=== PATIENT | male | born 1965 | race Caucasian/White ===

== ENCOUNTER 2019-11-11 11:00 | Observation (INO) ==
[~2019-11-11 11:00] MED LIST: ACETAMINOPHEN 500 MG TABLET PO PRN; MAG HYDROX/ALUMINUM HYD/SIMETH 30 ML UDC PO PRN; MAGNESIUM HYDROXIDE 30 ML UDC PO PRN; ONDANSETRON HCL/PF 2 MG/ML VIAL IV PRN; RINGER'S SOLUTION,LACTATED 1,000 ML IV PRN; ZOLPIDEM TARTRATE 5 MG TABLET PO PRN; ceFAZolin SODIUM 1 GM VIAL IV PRN; diphenhydrAMINE HCL 50 MG/ML VIAL IV PRN
[2019-11-11] MEDS: RINGER'S SOLUTION,LACTATED 1,000 ML IV PRN ×2 (11:35→14:32)
--- NOTE | 2019-11-11 12:24 | ANES ---
Anesthesia Pre Procedure Eval Vitals/Labs: Last Vital Signs Temp 36.8 C 11/11/19 11:17 Pulse 70 11/11/19 11:17 Resp 18 11/11/19 11:17 BP 141/94 H 11/11/19 11:17 Pulse Ox 97 11/11/19 11:17 HOME MEDICATIONS Aspirin [Aspirin Chewable] 81 mg PO DAILY 01/07/18 [Last Taken Unknown] Glucosamine HCl 2 tab PO DAILY 01/07/18 [Last Taken Unknown] Loratadine 10 mg PO DAILY 01/07/18 [Last Taken Unknown] Multivitamin [Multivitamins] 1 ea PO DAILY 01/07/18 [Last Taken Unknown] metFORMIN HCL [Metformin HCl] 500 mg PO BID 01/07/18 [Last Taken Unknown] Atorvastatin Calcium 10 mg PO HS 10/19/19 [Last Taken Unknown] Echinacea 1,000 mg PO DAILY 11/11/19 [Last Taken Unknown] Tamsulosin HCl [Flomax] 0.4 mg PO DAILY 11/11/19 [Last Taken Unknown] Tiotropium [place] [Spiriva] 2 cap INHALATION DAILY 11/11/19 [Last Taken Unknown] Allergies/Adverse Reactions: Allergies Allergy/AdvReac Type Severity Reaction Status Date / Time shellfish derived AdvReac makes very Verified 11/11/19 11:23 sick with vomitting - Planned Procedure Planned Procedure: Closed reduction percutaneous pinning left 5th met Medication List Reviewed:: Yes Allergies Verified: Yes Medical History (Last Reviewed 11/11/19 @ 12:23 by Alberto Ceja CRNA) Sleep apnea with use of continuous positive airway pressure (CPAP) COPD (chronic obstructive pulmonary disease) Onset Date: Unknown Foot fracture, left Onset Date: 10/19/19 fifth metatarsal History of smoking Onset Date: Unknown Pre-diabetes Onset Date: Unknown Hypercholesteremia Onset Date: Unknown Hypertension Onset Date: Unknown Surgical History (Last Reviewed 11/11/19 @ 12:23 by Alberto Ceja CRNA) History of bilateral inguinal hernia repair Onset Date: Unknown History of rectal surgery Onset Date: Unknown removal mass History of rotator cuff surgery Onset Date: Unknown Left Shoulder S/P LASIK surgery Onset Date: Unknown Family History (Last Reviewed 11/11/19 @ 12:23 by Alberto Ceja CRNA) Mother Diabetes Father Diabetes Heart disease Cancer - Family Anesthesia History Family History:: no untoward family reactions to anesthesia - Airway/Neck/Teeth Within Normal Limits:: Yes Teeth Condition: missing Neck Exam: limited range of motion Mallampatti Score: 3 Thyromental (T-M) distance: > 6 cm Mandibulo Hyoid distance: > 3 cm - Respiratory Respiratory History: COPD, CPAP/BiPAP home use Respiratory Physical: lungs clear Smoking Status: Former smoker Sleep Apnea currently treated: Yes Sleep Apnea by current assessment: Yes - Cardiovascular Cardiac History: hypertension Tolerate Activity: Fair Heart Sounds: S1 & S2, Regular - Gastrointestinal NPO since: MN - Anesthesia Assessment and Plan ASA Class: PS, III Anesthesia Type Plan: MAC Planned difficult intubation/equipment available: No
[2019-11-11] MEDS ORDERED: ceFAZolin SODIUM 1 GM VIAL ONE (12:25)
[2019-11-11] MEDS ORDERED: BUPIVACAINE HCL 50 ML VIAL IJ ONE ×3 (12:25→13:03)
[2019-11-11] MEDS ORDERED: LIDOCAINE HCL 20 ML VIAL ONE (12:26)
[2019-11-11] MEDS ORDERED: PROPOFOL VIAL IV ONE (12:27)
[2019-11-11] MEDS ORDERED: MIDAZOLAM HCL/PF 5 MG/ML VIAL ONE (12:27)
--- NOTE | 2019-11-11 13:27 | OR ---
Operative Report - Dictated Report Narrative: DATE OF PROCEDURE: 11/11/2019 PHYSICIAN: Jassi Valdes MD PHARMACEUTICAL SPECIALTY REPRESENTATIVE: Stefan Ortiz PA-C PREOPERATIVE DIAGNOSIS: Closed left proximal fifth metatarsal fracture. POSTOPERATIVE DIAGNOSIS: Closed left proximal fifth metatarsal fracture. OPERATIONS AND PROCEDURES: 1. Closed reduction and percutaneous fixation left proximal fifth metatarsal fracture. 2. Intraoperative interpretation of x-rays. ANESTHESIA: General plus local. COMPLICATIONS: None. DRAINS: None. SPECIMENS: None. RETAINED IMPLANTS: Murray and Nephew 5.5 mm partially threaded cannulated cancellus screw 56 mm. INDICATIONS FOR PROCEDURE: Mr. Pressley is a 54-year-old gentleman who injured the left foot after twisting injury. He was seen in clinic and discussed options for treatment and wished to proceed with surgical treatment. The risks, benefits, and alternatives were discussed. The risk of bleeding, infection, nerve/tendon/blood vessel injury, malunion, nonunion, painful implants, prominent implants, failure of the procedure, need for additional procedures were discussed, and he wished to proceed. Consent was obtained in the clinic. DESCRIPTION OF PROCEDURE: After marking the correct extremity in the preoperative holding area, the patient was taken to the operating room. Timeout was performed. IV antibiotics consisting of Ancef were administered prior to procedure. A well-padded tourniquet was applied to the left calf. A beanbag was utilized in order to bump the left buttock and the left leg was then prepped and draped in a standard sterile fashion. After exsanguinating the extremity and inflating the tourniquet to 250 mmHg, local anesthetic was placed at the base of the fifth metatarsal. Using C arm for anatomic positioning a jordan incision was made to place a guidewire and a superior medial position at the base of the fifth metatarsal. This was placed d own the shaft in order to obtain the longest screw possible. Screw was measured out to 56 mm. Drill was utilized in order to open the proximal cortex and a countersink was utilized in order to allow the head to fit more flush. The screw was then placed and secured compressing across the fracture. The fracture was approximately 3 weeks old and thus there was some intervening soft tissues but we improved the overall reduction. Once was felt that we adequately stabilized the fracture, final images were obtained with mini C arm. 0.5% Marcaine without epinephrine was infused around the incision and around the lateral aspect of the foot. Tourniquet was deflated and hemostasis obtained. The wound was then closed with interrupted 3-0 nylon after obtaining final images. Xeroform, 4 x 4, soft roll Coban and a cam boot was applied and the patient was awoken and transferred to the postanesthesia care unit stable condition. All sponge, needle, and instrument counts were correct prior to closing the wounds.
--- NOTE | 2019-11-11 13:44 | ANES ---
Post Anesthesia Discharge - Transfer of Care Transfer of Care handoff given to nurse: Yes - Discharge to ASU Discharge to ASU-no complications/pt stable: Yes
--- NOTE | 2019-11-11 13:44 | ANES ---
Post Anesthesia Assessment - Vital Signs Vitals: Last Vital Signs Temp 36.7 C 11/11/19 13:30 Pulse 91 11/11/19 13:30 Resp 16 11/11/19 13:30 BP 122/89 11/11/19 13:30 Pulse Ox 92 L 11/11/19 13:30 Airway Patency: Normal - Mental Status Level Of Consciousness: Awake - Pain Level Pain Score: 0 - N/V Assessment Nausea/Vomiting Presence: None Dehydration:: No
[2019-11-11] MEDS: oxyCODONE HCL/ACETAMINOPHEN 1 TAB TABLET PO PRN ×2 (14:05→19:06)
[2019-11-11] MEDS ORDERED: HYDROmorphone HCL 2 MG/ML VIAL IV ONE (14:17)
[2019-11-11 14:58] LABS: CK Total * 108 U/L (0-259); CKMB 0.9 ng/mL (0.0-9.0); Troponin I Less than 0.017 ng/mL (0.00-0.10)
[2019-11-11 18:06] LABS: CKMB 0.8 ng/mL (0.0-9.0)
[2019-11-11 18:07] LABS: Troponin I 0.018 ng/mL (0.00-0.10)
--- NOTE | 2019-11-11 18:45 | HP ---
Chief Complaint - Chief Complaint Date of Service: 11/11/19 Time of Service: 18:27 Chief Complaint: chest pain History of Present Illness: Patient with PMHx of prediabetes, COPD, HTN, STEVE on CPAP, obesity, remote tobacco use underwent surgical repair of a metatarsal fracture earlier today. A couple hours later while in ambulatory surgery, he developed chest pressure that he described as a squeezing of his ribs. Denied increased SOB or diaphoresis. He was given dilaudid for the surgical pain. Initial troponin negative, no EKG changes. Chest pain resolved, not present on my exam. Repeat EKG also did not have concerning findings, and repeat troponin 3 hours from initial was reported as 0.018. Overnight observation was offered, and he agreed. His father had open heart surgery. He also reports episodic dizziness, present for many months. Medical History (Last Reviewed 11/11/19 @ 12:23 by Alberto Ceja CRNA) COPD (chronic obstructive pulmonary disease) Onset Date: Unknown Foot fracture, left Onset Date: 10/19/19 fifth metatarsal History of smoking Onset Date: Unknown Pre-diabetes Onset Date: Unknown Sleep apnea with use of continuous positive airway pressure (CPAP) Hypercholesteremia Onset Date: Unknown Hypertension Onset Date: Unknown Surgical History: Surgical History (Last Reviewed 11/11/19 @ 12:23 by Alberto Ceja CRNA) History of bilateral inguinal hernia repair Onset Date: Unknown History of rectal surgery Onset Date: Unknown removal mass History of rotator cuff surgery Onset Date: Unknown Left Shoulder S/P LASIK surgery Onset Date: Unknown Family History: Family History (Last Reviewed 11/11/19 @ 12:23 by Alberto Ceja CRNA) Mother Diabetes Father Diabetes Heart disease Cancer Social History: (Last Reviewed 11/11/19 @ 11:25 by Kim Martinez) Social History: Marital status: household members: family current occupational status: employed 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 Highest education level completed: some college, no degree Service: Yes branch: [employer] Tobacco: Smoking Status: Former smoker Alcohol: alcohol intake: current alcohol intake frequency: a few times a month Substance Use: substance use type: does not use Dietary Habits: caffeine: Yes Type: carbonated beverages, coffee, tea Review Of Systems (GEN) - Review of Systems Generalized/Overall Review: Absent: Fever Cardiac: Present: Chest Pain, Edema Abdominal: Absent: Nausea Musculoskeletal: Present: Other - left foot pain Immunizations: IMMUNIZATION HX Immunizations Up to Date No History of Influenza Vaccine Yes Hx Pneumococcal Vaccination No Allergies/Adverse Reactions: Allergies Allergy/AdvReac Type Severity Reaction Status Date / Time adhesive tape Allergy Mild rash from Verified 11/11/19 17:21 transpore tape "if on too long" shellfish derived AdvReac makes very Verified 11/11/19 11:23 sick with vomitting Home Medications: HOME MEDICATIONS Aspirin [Aspirin Chewable] 81 mg PO DAILY 01/07/18 [Last Taken Unknown] Glucosamine HCl 2 tab PO DAILY 01/07/18 [Last Taken Unknown] Loratadine 10 mg PO DAILY 01/07/18 [Last Taken Unknown] Multivitamin [Multivitamins] 1 ea PO DAILY 01/07/18 [Last Taken Unknown] metFORMIN HCL [Metformin HCl] 500 mg PO BID 01/07/18 [Last Taken Unknown] Atorvastatin Calcium 10 mg PO HS 10/19/19 [Last Taken Unknown] Echinacea 1,000 mg PO DAILY 11/11/19 [Last Taken Unknown] Tamsulosin HCl [Flomax] 0.4 mg PO DAILY 11/11/19 [Last Taken Unknown] Tiotropium [place] [Spiriva] 2 cap INHALATION DAILY 11/11/19 [Last Taken Unknown] Exam - Exam Vital Signs: Vital Signs - Last Taken Temp 36.7 C 11/11/19 13:30 Pulse 60 11/11/19 18:15 Resp 16 11/11/19 18:15 BP 123/76 11/11/19 18:15 Pulse Ox 98 11/11/19 18:15 Constitutional: Present: Alert, Cooperative, No distress, Obese Respiratory: Present: no respiratory distress, other - on 2 L via NC, 99% Cardiovascular/Chest: Present: regular rate, rhythm. Absent: chest tender Abdomen: Present: obese Extremity: Present: other - left foot in boot. Absent: lower extremity edema Eye contact: Present: cooperative, good eye contact Diagnostic Studies: Laboratory Results Creatine Kinase 98 U/L (0-259) 11/11/19 17:40 CK-MB (CK-2) 0.8 ng/mL (0.0-9.0) 11/11/19 17:40 CK-MB (CK-2) Rel Index 0.8 (0.0-3.6) 11/11/19 17:40 Troponin I 0.018 ng/mL (0.00-0.10) 11/11/19 17:40 SARS-CoV-2 (PCR) Not detected (ND) 11/11/19 11:05 Assessment/Plan - Assessment/Plan (1) Chest pain Assessment: He experienced some post op chest pain this afternoon. Ddx includes ACS, respiratory source, MSK, anxiety. Chest pain has resolved for my exam. No EKG changes, and troponin not elevated thus far. He did require oxygen via mask for a short time after surgery, and is currently weaned to 1 L via NC. He reports his respiratory status has not changed from baseline. Will repeat troponin and EKG in 3 hours, and if there are concerning findings, may require transfer to [facility]. If negative, anticipate DC tomorrow. He has several cardiac risk factors, including obesity, HTN, HLD, diabetes, and family history. Will order a stress test with DC orders. Since he just had surgery to repair a metatarsal fracture, this will need to be a pharmacologic stress test. Problem: Acute (2) Metatarsal bone fracture Assessment: He underwent surgical repair earlier today. He is to be weight bear on that heel only, while wearing the boot. Pain control per ortho recommendations. Problem: Acute Qualifiers: Metatarsal bone: fifth Laterality: left (3) Prediabetes Assessment: Prediabetes is listed as a diagnosis in his chart, but his A1C was 6.8% in 2015, which is high enough to diagnose diabetes. He is currently prescribed 500 mg metformin bid. Problem: Chronic (4) Hypertension Assessment: Continue home meds. Currently controlled. Problem: Chronic (5) STEVE on CPAP Problem: Chronic (6) Hyperlipidemia Assessment: He is on 10 mg atorvastatin, and has been for a few years. He reports wanting to change meds, because he feels like atorvastatin is causing short term memory loss. His PCP is an outside provider. Using his cholesterol levels from 2019, his 10 year ASCVD risk is 14.9%, so he should be on a high intensity statin, 40- 80 mg atorvastatin or 20-40 mg rosuvastatin. Problem: Chronic (7) COPD (chronic obstructive pulmonary disease) Assessment: Continue home meds. He weaned from O2, in ambulatory surgery, but can add it back if oxygen is less than 93%. Problem: Chronic
[2019-11-11] MEDS ORDERED: SENNOSIDES/DOCUSATE SODIUM 1 TAB TABLET PO SCH (21:00)
[2019-11-11] MEDS ORDERED: ROSUVASTATIN CALCIUM 10 MG TABLET PO SCH (21:00)
[2019-11-11] MEDS: metFORMIN HCL 500 MG TABLET PO SCH (21:10)
[2019-11-12] MEDS: oxyCODONE HCL/ACETAMINOPHEN 1 TAB TABLET PO PRN ×3 (00:22→09:36)
[2019-11-12] MEDS: metFORMIN HCL 500 MG TABLET PO SCH (08:03)
--- NOTE | 2019-11-12 08:44 | DS ---
(1) Chest pain Problem: Resolved (2) Metatarsal bone fracture Problem: Acute Qualifiers: Metatarsal bone: fifth Laterality: left (3) Prediabetes Problem: Chronic (4) Hypertension Problem: Chronic (5) STEVE on CPAP Problem: Chronic (6) Hyperlipidemia Problem: Chronic (7) COPD (chronic obstructive pulmonary disease) Problem: Chronic Date of Discharge:: 11/12/19 Hospital Course: Patient with PMHx of prediabetes, COPD, HTN, STEVE on CPAP, obesity, remote tobacco use underwent surgical repair of a metatarsal fracture. A couple hours later while in ambulatory surgery, he developed chest pressure that he described as a squeezing of his ribs. Denied increased SOB or diaphoresis. He was given dilaudid for the surgical pain, and developed the chest pressure shortly after its administration. He required oxygen for 5 hours, up to 6 L via oxymask. Initial troponin negative, no EKG changes. Chest pressure resolved, and did not recur. Repeat EKG also did not have concerning findings, and repeat troponin 3 hours from initial was reported as 0.018. He agreed to overnight observation. Troponin peaked at 0.024. Echocardiogram ordered, as he has been having intermittent dizziness for a few months. Pharmacologic stress test also ordered. He has several cardiac risk factors. Of note, he felt like his 10 mg atorvastatin is causing short term memory loss, but his ASCVD risk is 14.9%, so a high intensity statin is indicated. Recommend he discuss this with his PCP. Procedures Performed: see notes below - Closed reduction and percutaneous fixation left proximal fifth metatarsal fracture. Results and Findings: Lab Pending Results 11/11/19 11:05: SARS-CoV-2 (PCR) Not detected 11/11/19 14:30: Creatine Kinase 108, CK-MB (CK-2) 0.9, CK-MB (CK-2) Rel Index 0.8, Troponin I Less than 0.017 11/11/19 17:40: Creatine Kinase 98, CK-MB (CK-2) 0.8, CK-MB (CK-2) Rel Index 0.8, Troponin I 0.018 11/11/19 21:10: Troponin I 0.023 11/12/19 03:05: Troponin I 0.024 11/12/19 07:34: Troponin I Less than 0.017 Discharge Location: Home Disposition: Home self-care Condition: Good Discharge Activity: Other - Weight bearing to heel only of left foot, in boot Discharge Diet: Consistent carbs Referrals: Promise Hanson DO [Primary Care Provider] - Two Weeks Complete Home Medications List: Complete Home Medication List: Aspirin [Aspirin Chewable] 81 mg PO DAILY 01/07/18 Glucosamine HCl 2 tab PO DAILY 01/07/18 Loratadine 10 mg PO DAILY 01/07/18 Multivitamin [Multivitamins] 1 ea PO DAILY 01/07/18 metFORMIN HCL [Metformin HCl] 500 mg PO BID 01/07/18 Atorvastatin Calcium 10 mg PO HS 10/19/19 Echinacea 1,000 mg PO DAILY 11/11/19 Tamsulosin HCl [Flomax] 0.4 mg PO DAILY 11/11/19 Tiotropium [place] [Spiriva Respimat 1.25 mcg/inhalation] 2 puff INHALATION DAILY 11/12/19 Tiotropium [place] [Spiriva] 1 cap IH DAILY inhaler 11/12/19 oxyCODONE HCL/ACETAMINOPHEN [Percocet 5 MG/325 MG] 2 tab PO Q4H PRN tablet 11/12/19 oxyCODONE HCL/ACETAMINOPHEN [Percocet 5-325 mg Tablet] 1 - 2 each PO Q6H PRN 11/12/19 Amb Orders for Discharge: NUC Pharmacological Stress Time Frame: 1 Week, Facility: [facility], Location: Radiology
[2019-11-12] MEDS ORDERED: GLUCOSAMINE HCL PO SCH (09:00)
[2019-11-12] MEDS ORDERED: LORATADINE 10 MG TABLET PO SCH (09:00)
[2019-11-12] MEDS ORDERED: ECHINACEA PO SCH (09:00)
[2019-11-12] MEDS ORDERED: TAMSULOSIN HCL 0.4 MG CAP.SR.24H PO SCH (09:00)
[2019-11-12] MEDS ORDERED: TIOTROPIUM BROMIDE 5 CAP INHALER IH SCH ×2 (09:00)
[2019-11-12] MEDS ORDERED: ASPIRIN 81 MG TAB.CHEW PO SCH (09:00)
[2019-11-12 09:03] VITALS: BP 129/90
== END 2019-11-12 10:45 | disposition home or self-care (01) ==
LOC: SUR 11:00 → MS 11:00
PROVIDERS: ADMIT Family Medicine; ATTEND Family Medicine
DX: G47.33 Obstructive sleep apnea (adult) (pediatric); W01.0XXA Fall on same level from slipping, tripping and stumbling without subsequent striking against object, initial encounter; Z87.891 Personal history of nicotine dependence; R07.89 Other chest pain; G89.18 Other acute postprocedural pain; J44.9 Chronic obstructive pulmonary disease, unspecified; E78.5 Hyperlipidemia, unspecified; Z11.59 Encounter for screening for other viral diseases; S92.352A Displaced fracture of fifth metatarsal bone, left foot, initial encounter for closed fracture; E11.9 Type 2 diabetes mellitus without complications; Z68.37 Body mass index [BMI] 37.0-37.9, adult; E66.9 Obesity, unspecified
CPT/HCPCS: 36415; 82550; 82553; 84484; 93005; C9803; G0378